=== PATIENT | female | born 1995 | race Caucasian/White ===

== ENCOUNTER 2017-05-05 21:56 | Emergency (ER) | payer OTHER ==
[~2017-05-05] VITALS: Ht 165.1 cm; Wt 64.0 kg
[~2017-05-05 21:56] MED LIST: ACET-704 PO; CIPR500T94 PO; CYCL-331 PO; HYDR-971 PO; LEVO500T59 PO; NAPR500T PO; SULF1TAB24 PO
--- NOTE | 2017-05-05 22:23 | ED.ADGEN ---
Past History Past Medical History: UTI, Other Past Surgical History: No Surgical History Smoking: Non-smoker Alcohol Use: Rarely Drug Use: None Adult General Chief Complaint Chief Complaint fall, back and rlq pain [facility] HPI Patient is a [22] year old [female] who presents with right CVA pain and paraspinous pain after fall on saturday. pain radiates around ribs to the right. she slipped down 1 step and fell to her back. pain with inspiration but not SOA. no fever, no n/v/d.today she started having RLQ pain. normal appetitie. she had leftover hydrocodone from a recent visit for UTI. she doesn't know her abx but states she took all of them. Review of Systems Review of Systems Constitutional: Denies fever or chills [] Eyes: Denies change in visual acuity, redness, or eye pain [] HENT: Denies nasal congestion or sore throat [] Respiratory: Denies cough or shortness of breath pain with inspiration Cardiovascular: No additional information not addressed in HPI [] GI: Denies abdominal pain, nausea, vomiting, bloody stools or diarrhea [] : Denies dysuria or hematuria [] Musculoskeletal:pain to right CVA and paraspinous muscle Skin: no rash Neurologic: Denies headache, focal weakness or sensory changes [] Endocrine: Denies polyuria or polydipsia [] Current Medications Current Medications Current Medications Medications (Trade) Dose Ordered Sig/Otf Start Time Stop Time Status Last Admin Dose Admin Info (Do NOT chart on this entry -- for MONITORING) 1 each PRN DAILY PRN 05/05/17 23:30 05/06/17 01:03 DC Iohexol (Omnipaque 300 Mg/ml) 75 ml 1X ONCE 05/05/17 23:30 05/05/17 23:31 DC 05/05/17 23:37 75 ML Allergies Allergies Allergies Coded Allergies Type Severity Reaction Last Updated Verified erythromycin base Adverse Reaction Severe Nausea and Vomiting 09/06/15 Yes Physical Exam Physical Exam Constitutional: Well developed, well nourished, no acute distress, non-toxic appearance. [] HENT: Normocephalic, atraumatic, bilateral external ears normal, oropharynx moist, no oral exudates, nose normal. [] Eyes: PERRLA, EOMI, conjunctiva normal, no discharge. [] Neck: Normal range of motion, no tenderness, supple, no stridor. [] Cardiovascular:Heart rate regular rhythm, no murmur [] Lungs & Thorax: Bilateral breath sounds clear to auscultation. tender to palpate right posterior, inferior ribs. Abdomen: Bowel sounds normal, soft, no tenderness, no masses, no pulsatile masses. RLQ pain, no RUQ pain Skin: Warm, dry, no erythema, no rash. [] Back: Tender right CVA and right paraspinous muscles at T10-T12. no external sign of trauma Extremities: No tenderness, no cyanosis, no clubbing, ROM intact, no edema. [] Neurologic: Alert and oriented X 3, normal motor function, normal sensory function, no focal deficits noted. [] Psychologic: Affect normal, judgement normal, mood normal. [] Current Patient Data Vital Signs Vital Signs Date Time Temp Pulse Resp B/P (MAP) Pulse Ox O2 Delivery O2 Flow Rate FiO2 05/06/17 00:55 71 16 101/57 (72) 98 Room Air Lab Results Laboratory Tests Test 05/05/17 22:00 05/05/17 22:29 05/05/17 23:32 Urine Collection Type Unknown Urine Color Yellow Urine Clarity Cloudy Urine pH 7.5 Urine Specific [place] 1.020 Urine Protein 100 mg/dl (NEG-TRACE) Urine Glucose (UA) Neg mg/dL (NEG) Urine Ketones (Stick) Neg mg/dL (NEG) Urine Blood Mod (NEG) Urine Nitrite Neg (NEG) Urine Bilirubin Neg (NEG) Urine Urobilinogen Dipstick 0.2 mg/dL (0.2 mg/dL) Urine Leukocyte Esterase Large (NEG) Urine RBC Occ /HPF (0-2) Urine WBC >40 /HPF (0-4) Urine Squamous Epithelial Cells Few /LPF Urine Bacteria Few /HPF (0-FEW) POC Urine HCG, Qualitative hcg negative (Negative) White Blood Count 8.7 x10^3/uL (4.0-11.0) Red Blood Count 4.13 x10^6/uL (3.50-5.40) Hemoglobin 13.2 g/dL (12.0-15.5) Hematocrit 38.7 % (36.0-47.0) Mean Corpuscular Volume 94 fL (79-100) Mean Corpuscular Hemoglobin 32 pg (25-35) Mean Corpuscular Hemoglobin Concent 34 g/dL (31-37) Red Cell Distribution Width 13.5 % (11.5-14.5) Platelet Count 195 x10^3/uL (140-400) Neutrophils (%) (Auto) 73 % (31-73) Lymphocytes (%) (Auto) 15 % (24-48) L Monocytes (%) (Auto) 9 % (0-9) Eosinophils (%) (Auto) 2 % (0-3) Basophils (%) (Auto) 1 % (0-3) Neutrophils # (Auto) 6.4 x10^3uL (1.8-7.7) Lymphocytes # (Auto) 1.3 x10^3/uL (1.0-4.8) Monocytes # (Auto) 0.8 x10^3/uL (0.0-1.1) Eosinophils # (Auto) 0.1 x10^3/uL (0.0-0.7) Basophils # (Auto) 0.1 x10^3/uL (0.0-0.2) Sodium Level 139 mmol/L (136-145) Potassium Level 3.2 mmol/L (3.5-5.1) L Chloride Level 102 mmol/L (98-107) Carbon Dioxide Level 29 mmol/L (21-32) Anion Gap 8 (6-14) Blood Urea Nitrogen 5 mg/dL (7-20) L Creatinine 0.6 mg/dL (0.6-1.0) Estimated GFR (Cockcroft-Gault) 122.8 Glucose Level 96 mg/dL (70-99) Calcium Level 8.5 mg/dL (8.5-10.1) EKG EKG [] Radiology/Procedures Radiology/Procedures CT with mild colonic thickening per radiology Course & Med Decision Making Course & Med Decision Making Pertinent Labs and Imaging studies reviewed. (See chart for details). pt was on cipro but her UA shows UTI still. will assume treatment failure and change to macrobid. no kidney injury seen from fall, no rib fractures on CT for lower ribs [] Final Impression Final Impression uti[] Problems: Dragon Disclaimer Dragon Disclaimer This electronic medical record was generated, in whole or in part, using a voice recognition dictation system. Departure Time of Disposition: 00:52 Disposition: 01 HOME, SELF-CARE Condition: STABLE Patient Instructions: Urinary Tract Infection, [id number] Additional Instructions: start macrobid today for infection. hydrocodone for pain for 2 days then tylenol and ibuprofen after. push fluids and reduce soda intake. return if symptoms worsen GIUSEPPE CORTEZ MD May 05, 2017 22:23
[2017-05-05] MEDS ORDERED: IOHEXOL 300 MG/ML 75 ML VIAL. IV ONE (23:30)
[2017-05-05] MEDS ORDERED: CONTRAST GIVEN MC PRN (23:30)
[2017-05-05 23:32] LABS: BACTERIA,URINE FEW /HPF (0-FEW); BILIRUBIN,URINE NEG (NEG); CLARITY,URINE CLOUDY; COLOR,URINE YELLOW; GLUCOSE,URINE NEG (NEG); NITRITE,URINE NEG (NEG); RBC,URINE OCC /HPF (0-2); SQUAMOUS EPITHELIAL CELL,UR FEW /LPF; UROBILINOGEN,URINE 0.2 mg/dL (0.2 mg/dL); WBC,URINE >40 /HPF (0-4)
[2017-05-05 23:46] LABS: BASO # 0.1 x10^3/uL (0.0-0.2); BASO % 1 % (0-3); EOS # 0.1 x10^3/uL (0.0-0.7); EOS % 2 % (0-3); HEMATOCRIT 38.7 % (36.0-47.0); HEMOGLOBIN 13.2 g/dL (12.0-15.5); LYMPH # 1.3 x10^3/uL (1.0-4.8); LYMPH % 15 % (24-48); MEAN CORPUSCULAR HEMOGLOBIN 32 pg (25-35); MEAN CORPUSCULAR HGB CONC 34 g/dL (31-37); MEAN CORPUSCULAR VOLUME 94 fL (79-100); MONO # 0.8 x10^3/uL (0.0-1.1); MONO % 9 % (0-9); NEUT # 6.4 x10^3uL (1.8-7.7); NEUT % 73 % (31-73); PLATELET COUNT 195 x10^3/uL (140-400); RED BLOOD COUNT 4.13 x10^6/uL (3.50-5.40); RED CELL DISTRIBUTION WIDTH 13.5 % (11.5-14.5); WHITE BLOOD COUNT 8.7 x10^3/uL (4.0-11.0)
[2017-05-05 23:52] LABS: CALCIUM 8.5 mg/dL (8.5-10.1); CREATININE 0.6 mg/dL (0.6-1.0); GFR 122.8; POTASSIUM 3.2 mmol/L (3.5-5.1)
--- NOTE | 2017-05-06 00:41 | RAD ---
Examination: CT of the abdomen and pelvis with IV contrast HISTORY: History of recent fall, pain right lower quadrant, hematuria COMPARISON: 11/13/2014 TECHNIQUE: CT of the abdomen and pelvis with IV contrast. Coronal and sagittal reformats were performed. Exposure: One or more of the following individualized dose reduction techniques were utilized for this examination: 1. Automated exposure control 2. Adjustment of the mA and/or kV according to patient size 3. Use of iterative reconstruction technique FINDINGS: The visualized bibasilar lungs grossly appears unremarkable. No evidence of free air identified in the abdomen. The visualized liver, spleen, adrenals prostate is unremarkable but the gallbladder is mildly distended. The stomach is mildly distended. The visualized pancreas grossly appears unremarkable The small bowel is nondilated. The appendix is normal. Feces and gas noted in the colon. There is mild thickened appearance of the wall of the sigmoid colon with surrounding inflammatory fat stranding. Small amount of free fluid identified in the pelvis. Urinary bladder is mildly distended. The uterus is mildly prominent. Small amount of fluid identified in the endometrium. The caliber of the aorta grossly appears unremarkable. The bilateral kidneys enhance symmetrically. No evidence of lytic bony destructive lesion. Bilateral L5 spondylolysis. IMPRESSION: 1. Mild inflammatory fat stranding identified in sigmoid colon region with mild thickened appearance of the sigmoid colon likely secondary to colitis. Electronically signed by: Roberto Goldberg MD (05/06/2017 12:37 AM)
[2017-05-06 00:55] VITALS: BP 101/57
== END 2017-05-06 00:59 | disposition home or self-care (01) ==
LOC: ER 21:56
DX: N39.0 Urinary tract infection, site not specified (principal); Z88.1 Allergy status to other antibiotic agents
CPT/HCPCS: 36415; 74177; 80048; 81001; 81025; 85027; 99285; Q9967

== ENCOUNTER 2017-06-09 19:01 | Emergency (ER) | payer OTHER ==
[~2017-06-09] VITALS: Ht 165.1 cm; Wt 64.0 kg
[2017-06-09 19:01] VITALS: BP 127/80
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
--- NOTE | 2017-06-10 07:56 | RAD ---
EXAM: Right wrist 3 views. HISTORY: Right wrist pain after injury. COMPARISON: None. FINDINGS: No fractures are identified. Joint spaces and alignment are maintained. IMPRESSION: 1. No fracture.
== END 2017-06-09 20:40 | disposition home or self-care (01) ==
LOC: ER 19:01
DX: S60.211A Contusion of right wrist, initial encounter (principal); Z88.1 Allergy status to other antibiotic agents; W22.01XA Walked into wall, initial encounter; Y93.89 Activity, other specified; Y99.8 Other external cause status; Y92.89 Other specified places as the place of occurrence of the external cause
CPT/HCPCS: 29125; 73110; 81025; 99284-25

== ENCOUNTER → 2017-08-10 | Outpatient (CLI) | payer OTHER ==
--- NOTE | 2017-08-10 13:47 | RAD ---
Obstetrical pelvic ultrasound 08/10/2017 at 1309 hours Indication: Pelvic cramping, LMP reported 05/19/2017 Comparison: Ultrasound pelvis 06/13/2012 Technique: Sonographic imaging of the abdomen is performed utilizing transabdominal imaging with color Doppler and spectral waveform analysis. Findings: The uterus measures 9.3 x 7.8 x 7.1 cm. Cervical length measures 3.0 cm. An intrauterine gestational sac is identified with a yolk sac. No pole is identified. Gestational sac measures 0.91 cm compatible with a gestational age of 5 weeks and 5 days. No significant uterine masses are identified. Is no free fluid within the pelvis. Right ovary measures 2.6 x 2.3 x 1.4 cm and is within normal limits. Left ovary measures 4.0 x 2.7 x 1.3 cm and is within normal limits. Arterial and venous waveform are identified within the ovaries bilaterally at the time of imaging. Impression: 1. An intrauterine gestational sac is identified with a yolk sac. No pole is yet identified. Findings are compatible with a gestational age of 5 weeks and 5 days with a sonogram EDC of 04/07/2018. Given discrepancy of LMP and sonographic imaging, follow-up serial beta hCG and pelvic ultrasound is recommended as findings could relate to early versus threatened failure.
== END | disposition home or self-care (01) ==
LOC: RAD 12:40
PROVIDERS: ATTEND Family Medicine
DX: O26.891 Other specified pregnancy related conditions, first trimester (principal); R10.2 Pelvic and perineal pain; Z3A.01 Less than 8 weeks gestation of pregnancy
CPT/HCPCS: 76801

== ENCOUNTER 2018-05-03 10:52 | Emergency (ER) | payer OTHER ==
[~2018-05-03] VITALS: Ht 165.1 cm; Wt 68.5 kg
[~2018-05-03 10:52] MED LIST changes: +NAPR-683 PO; -NAPR500T PO
[2018-05-03 11:01] VITALS: BP 124/79
[2018-05-03] MEDS ORDERED: ONDANSETRON ODT 4 MG TAB.RAPDIS PO ONE (11:15)
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
[2018-05-03 12:49] LABS: BILIRUBIN,URINE NEG (NEG); CLARITY,URINE TURBID; COLOR,URINE YELLOW; GLUCOSE,URINE NEG (NEG); NITRITE,URINE NEG (NEG); UROBILINOGEN,URINE 0.2 mg/dL (0.2 mg/dL)
[2018-05-03 12:50] LABS: BACTERIA,URINE MANY /HPF (0-FEW); WBC,URINE >40 /HPF (0-4)
[2018-05-03 12:51] LABS: SQUAMOUS EPITHELIAL CELL,UR MANY /LPF
[2018-05-03 13:33] LABS: BASO % 1 % (0-3); EOS % 0 % (0-3); HEMATOCRIT 40.3 % (36.0-47.0); HEMOGLOBIN 13.1 g/dL (12.0-15.5); LYMPH # 0.8 x10^3/uL (1.0-4.8); LYMPH % 15 % (24-48); MEAN CORPUSCULAR HEMOGLOBIN 27 pg (25-35); MEAN CORPUSCULAR HGB CONC 32 g/dL (31-37); MEAN CORPUSCULAR VOLUME 84 fL (79-100); MONO # 0.3 x10^3/uL (0.0-1.1); MONO % 5 % (0-9); NEUT # 4.5 x10^3uL (1.8-7.7); NEUT % 80 % (31-73); PLATELET COUNT 231 x10^3/uL (140-400); RED BLOOD COUNT 4.77 x10^6/uL (3.50-5.40); RED CELL DISTRIBUTION WIDTH 24.5 % (11.5-14.5); WHITE BLOOD COUNT 5.7 x10^3/uL (4.0-11.0)
[2018-05-03 13:40] LABS: ALBUMIN 4.6 g/dL (3.4-5.0); CALCIUM 8.9 mg/dL (8.5-10.1); CREATININE 0.7 mg/dL (0.6-1.0); POTASSIUM 3.6 mmol/L (3.5-5.1); TOTAL BILIRUBIN 0.9 mg/dL (0.2-1.0)
[2018-05-03] MEDS ORDERED: CEPH500T PO (13:50)
[2018-05-03 14:14] LABS: ANISOCYTOSIS SLIGHT; MICROCYTOSIS SLIGHT; PLT ESTIMATE ADEQUATE (ADEQUATE); POLYCHROMASIA SLIGHT
[2018-05-03 14:17] LABS: OVALOCYTES OCC
== END 2018-05-03 13:17 | disposition home or self-care (01) ==
LOC: ER 10:52
DX: N39.0 Urinary tract infection, site not specified (principal); R20.2 Paresthesia of skin; Z88.1 Allergy status to other antibiotic agents
CPT/HCPCS: 36415; 80053; 81001; 81025; 85025; 87086; 99284; Q0162

== ENCOUNTER 2018-08-03 10:37 | Emergency (ER) | payer OTHER ==
[~2018-08-03] VITALS: Ht 165.1 cm; Wt 65.0 kg
[~2018-08-03 10:37] MED LIST changes: +CEPH500T PO
[2018-08-03 11:25] LABS: BACTERIA,URINE MOD /HPF (0-FEW); BILIRUBIN,URINE NEG (NEG); CLARITY,URINE HAZY; COLOR,URINE YELLOW; GLUCOSE,URINE NEG (NEG); NITRITE,URINE NEG (NEG); RBC,URINE RARE /HPF (0-2); SQUAMOUS EPITHELIAL CELL,UR MANY /LPF; U PREG PATIENT NEGATIVE (NEG); UROBILINOGEN,URINE 0.2 mg/dL (0.2 mg/dL); WBC,URINE 20-40 /HPF (0-4)
[2018-08-03] MEDS ORDERED: IBUP800T19 PO (11:48)
[2018-08-03] MEDS ORDERED: CYCL-331 PO (11:48)
[2018-08-03] MEDS ORDERED: CIPR250T30 PO (11:48)
--- NOTE | 2018-08-03 11:49 | PHYS DOC ---
Past History Past Medical History: No Pertinent History Past Surgical History: No Surgical History Smoking: Non-smoker Alcohol Use: None Drug Use: None Adult General Chief Complaint Chief Complaint: BACK PAIN - NO INJURY HPI HPI Patient is a 23 year old female who presents with complaining of low back pain since this morning that woke up at 7 AM as a constant pain without radiation. Patient said the pain is a sharp pain and she has intermittent episodes of bilateral lower extremity numbness that resolves after a few seconds patient denies injury and history of same pain. Patient rated her pain 8/10 and states she applied heat without improvement of her pain. She denies focal weakness, fever and chills, nausea and vomiting, abdominal pain, urinary symptoms, diarrhea and constipation. Patient states she is on control and had irregular menstruation earlier this month. Review of Systems Review of Systems Constitutional: Denies fever or chills [] Eyes: Denies change in visual acuity, redness, or eye pain [] HENT: Denies nasal congestion or sore throat [] Respiratory: Denies cough or shortness of breath [] Cardiovascular: No additional information not addressed in HPI [] GI: Denies abdominal pain, nausea, vomiting, bloody stools or diarrhea [] : Denies dysuria or hematuria [] Musculoskeletal: Reports back pain o, denies joint pain [] Integument: Denies rash or skin lesions [] Neurologic: Denies headache, focal weakness or sensory changes [] Endocrine: Denies polyuria or polydipsia [] All other systems were reviewed and found to be within normal limits, except as documented in this note. Current Medications Current Medications Current Medications Medications (Trade) Dose Ordered Sig/[facility] Start Time Stop Time Status Last Admin Dose Admin Cyclobenzaprine HCl (Flexeril) 10 mg 1X ONCE 08/03/18 12:00 08/03/18 12:01 08/03/18 11:34 10 MG Allergies Allergies Allergies Coded Allergies Type Severity Reaction Last Updated Verified erythromycin base Adverse Reaction Severe Nausea and Vomiting 05/03/18 Yes Physical Exam Physical Exam Constitutional: Well developed, well nourished, mild distress, non-toxic appearance. [] HENT: Normocephalic, atraumatic Eyes: PERRLA, EOMI, conjunctiva normal, no discharge. [] Neck: Normal range of motion, no tenderness, supple, no stridor. [] Cardiovascular:Heart rate regular rhythm, no murmur [] Lungs & Thorax: Bilateral breath sounds clear to auscultation [] Abdomen: Bowel sounds normal, soft, no tenderness, no masses, no pulsatile masses. [] Skin: Warm, dry, no erythema, no rash. [] Back: No midline tenderness, bilateral paraspinal muscle spasm, decrease of range of motion secondary to pain, no CVA tenderness. [] Extremities: No tenderness, no cyanosis, no clubbing, ROM intact, no edema. [] Neurologic: Alert and oriented X 3, normal motor function, normal sensory function, no focal deficits noted. [] Psychologic: Affect normal, judgement normal, mood normal. [] Current Patient Data Vital Signs Vital Signs Date Time Temp Pulse Resp B/P (MAP) Pulse Ox O2 Delivery O2 Flow Rate FiO2 08/03/18 10:43 Room Air 08/03/18 10:43 98.3 65 18 99 Lab Results Laboratory Tests Test 08/03/18 10:43 Urine Collection Type Unknown Urine Color Yellow Urine Clarity Hazy Urine pH 6.5 Urine Specific [place] 1.015 Urine Protein Neg (NEG-TRACE) Urine Glucose (UA) Neg mg/dL (NEG) Urine Ketones (Stick) Neg mg/dL (NEG) Urine Blood Trace (NEG) Urine Nitrite Neg (NEG) Urine Bilirubin Neg (NEG) Urine Urobilinogen Dipstick 0.2 mg/dL (0.2 mg/dL) Urine Leukocyte Esterase Mod (NEG) Urine RBC Rare /HPF (0-2) Urine WBC 20-40 /HPF (0-4) Urine Squamous Epithelial Cells Many /LPF Urine Bacteria Mod /HPF (0-FEW) Urine Mucus Mod /LPF Urine Test Negative (NEG) EKG EKG [] Radiology/Procedures Radiology/Procedures [] Course & Med Decision Making Course & Med Decision Making Pertinent Labs reviewed. (See chart for details) Evaluation of patient in ER showed 23-year-old female patient with complaining of back pain since this morning. Patient had pulses present bilaterally and didn 't want to have pain medication in ER. Patient treated with Flexeril. UA showed UTI. Plan discharge patient home with diagnosis of UTI and lumbosacral strain. Dragon Disclaimer Dragon Disclaimer This electronic medical record was generated, in whole or in part, using a voice recognition dictation system. Departure Departure: Impression: Primary Impression: Lumbosacral strain Additional Impression: Urinary tract infection Disposition: HOME, SELF-CARE (at 1145) Condition: STABLE Referrals: ROLO FARRELL MD (PCP) Patient Instructions: Lumbosacral Strain, Urinary Tract Infection Additional Instructions: Drink plenty of liquids Follow-up with your primary care physician in 3-5 days Return to ER if not getting better Apply ice on the affected area Scripts Ciprofloxacin Hcl (CIPRO) 250 Mg Tablet 1 TAB PO BID, #14 TAB Prov: MEÑO SMART MD 08/03/18 Cyclobenzaprine Hcl (CYCLOBENZAPRINE HCL) 10 Mg Tablet 1 TAB PO TID, #30 TAB Prov: MEÑO SMART MD 08/03/18 Ibuprofen (IBUPROFEN) 800 Mg Tablet 1 TAB PO TID, #30 TAB Prov: MEÑO SMART MD 08/03/18 Problem Qualifiers MEÑO SMART MD Aug 03, 2018 11:49
[2018-08-03 12:00] VITALS: BP 104/62
[2018-08-03] MEDS ORDERED: CYCLOBENZAPRINE 10 MG TABLET. PO ONE (12:00)
== END 2018-08-03 12:00 | disposition home or self-care (01) ==
LOC: ER 10:37
DX: S39.012A Strain of muscle, fascia and tendon of lower back, initial encounter (principal); N39.0 Urinary tract infection, site not specified; Z88.1 Allergy status to other antibiotic agents; X58.XXXA Exposure to other specified factors, initial encounter; Y93.89 Activity, other specified; Y92.89 Other specified places as the place of occurrence of the external cause; Y99.8 Other external cause status
CPT/HCPCS: 81001; 81025; 99283

== ENCOUNTER 2018-10-02 08:40 | Emergency (ER) | payer OTHER ==
[~2018-10-02] VITALS: Ht 165.1 cm; Wt 68.0 kg
[~2018-10-02 08:40] MED LIST changes: +CIPR250T30 PO; +IBUP800T19 PO
[2018-10-02 08:53] VITALS: BP 142/92
[2018-10-02] MEDS ORDERED: IV NORMAL SALINE 1,000ML 1,000 ML IV ONE (09:00)
[2018-10-02] MEDS ORDERED: diphenhydrAMINE HCL 25 MG CAPSULE PO ONE (09:00)
[2018-10-02] MEDS ORDERED: METOCLOPRAMIDE HCL 10 MG/2 ML VIAL. IV ONE (09:00)
[2018-10-02] MEDS ORDERED: KETOROLAC 30 MG/ML VIAL. IV ONE (09:00)
--- NOTE | 2018-10-02 09:03 | PHYS DOC ---
Past History Past Medical History: No Pertinent History Past Surgical History: No Surgical History Smoking: Non-smoker Alcohol Use: None Drug Use: None Adult General Chief Complaint Chief Complaint: HEADACHE HPI HPI 23-year-old female presents with left-sided headache. She states that the headache started yesterday but improved with Tylenol. Today, the headache has returned and she took 2 ibuprofen without any relief. The patient also has pain in her left ear. She denies any change in hearing. She had been feeling well prior to this. She denies any trauma or falls. Her vision is normal. She denies fever or chills. No history of migraine headaches. Review of Systems Review of Systems Constitutional: Denies fever or chills [] Eyes: Denies change in visual acuity, redness, or eye pain [] HENT: Denies nasal congestion or sore throat [] Respiratory: Denies cough or shortness of breath [] Cardiovascular: No additional information not addressed in HPI [] GI: Denies abdominal pain, nausea, vomiting, bloody stools or diarrhea [] : Denies dysuria or hematuria [] Musculoskeletal: Denies back pain or joint pain [] Integument: Denies rash or skin lesions [] Neurologic: Headache. No focal weakness or sensory changes [] Endocrine: Denies polyuria or polydipsia [] All other systems were reviewed and found to be within normal limits, except as documented in this note. Allergies Allergies Allergies Coded Allergies Type Severity Reaction Last Updated Verified erythromycin base Adverse Reaction Severe Nausea and Vomiting 05/03/18 Yes Physical Exam Physical Exam Constitutional: Well developed, well nourished, no acute distress, non-toxic appearance. Appears to be in pain.[] HENT: Normocephalic, atraumatic, bilateral external ears normal, oropharynx moist, no oral exudates, nose normal. Fractured tooth in the left lower quadrant no signs of infection[] Eyes: PERRLA, EOMI, conjunctiva normal, no discharge. [] Neck: Normal range of motion, no tenderness, supple, no stridor. [] Cardiovascular:Heart rate regular rhythm, no murmur [] Lungs & Thorax: Bilateral breath sounds clear to auscultation [] Abdomen: Bowel sounds normal, soft, no tenderness, no masses, no pulsatile masses. [] Skin: Warm, dry, no erythema, no rash. [] Back: No tenderness, no CVA tenderness. [] Extremities: No tenderness, no cyanosis, no clubbing, ROM intact, no edema. [] Neurologic: Alert and oriented X 3, normal motor function, normal sensory function, no focal deficits noted. [] Psychologic: Affect tearful, judgement normal, mood normal. [] Current Patient Data Vital Signs Vital Signs Date Time Temp Pulse Resp B/P (MAP) Pulse Ox O2 Delivery O2 Flow Rate FiO2 10/02/18 08:53 98.1 60 22 98 Room Air EKG EKG [] Radiology/Procedures Radiology/Procedures [] Course & Med Decision Making Course & Med Decision Making Pertinent Labs and Imaging studies reviewed. (See chart for details) The patient was given 1 L normal saline, 30 mg Toradol IV, 25 mg of Benadryl by mouth and 10mg Reglan IV for her headache. The patient is feeling much better at this time. She is stable for discharge. [] Dragon Disclaimer Dragon Disclaimer This electronic medical record was generated, in whole or in part, using a voice recognition dictation system. Departure Departure: Referrals: ROLO FARRELL MD (PCP) AYAZ MURDOCK DO Oct 02, 2018 09:03
[2018-10-02 09:25] LABS: BASO % 1 % (0-3); EOS % 1 % (0-3); HEMATOCRIT 38.3 % (36.0-47.0); HEMOGLOBIN 12.9 g/dL (12.0-15.5); LYMPH # 1.3 x10^3/uL (1.0-4.8); LYMPH % 43 % (24-48); MEAN CORPUSCULAR HEMOGLOBIN 31 pg (25-35); MEAN CORPUSCULAR HGB CONC 34 g/dL (31-37); MEAN CORPUSCULAR VOLUME 93 fL (79-100); MONO # 0.2 x10^3/uL (0.0-1.1); MONO % 8 % (0-9); NEUT # 1.5 x10^3uL (1.8-7.7); NEUT % 48 % (31-73); PLATELET COUNT 197 x10^3/uL (140-400); RED BLOOD COUNT 4.11 x10^6/uL (3.50-5.40); RED CELL DISTRIBUTION WIDTH 14.7 % (11.5-14.5); WHITE BLOOD COUNT 3.1 x10^3/uL (4.0-11.0)
[2018-10-02 09:36] LABS: CALCIUM 8.3 mg/dL (8.5-10.1); CREATININE 0.6 mg/dL (0.6-1.0); GFR 121.8; POTASSIUM 3.9 mmol/L (3.5-5.1)
== END 2018-10-02 10:00 | disposition home or self-care (01) ==
LOC: ER 08:40
DX: R51 Headache (principal); H92.02 Otalgia, left ear; Z88.1 Allergy status to other antibiotic agents
CPT/HCPCS: 36415; 80048; 85025; 96374; 96375; 99284; J1885; J2765; Q0163; J7030

== ENCOUNTER → 2018-10-03 | Outpatient (CLI) | payer OTHER ==
[2018-10-02 08:53] VITALS: BP 142/92
--- NOTE | 2018-10-03 18:05 | RAD ---
EXAM: Head CT without contrast. HISTORY: Headache. Nausea. TECHNIQUE: Computed tomographic images of the head were obtained without contrast. *One or more of the following individualized dose reduction techniques were utilized for this examination: 1. Automated exposure control. 2. Adjustment of the mA and/or kV according to patient size. 3. Use of iterative reconstruction technique. COMPARISON: None. FINDINGS: There is no acute or subacute extra-axial or intraparenchymal hemorrhage. There is no mass effect or midline shift. There is no hydrocephalus. The torre-white matter differentiation pattern is intact. The visualized portions of the orbits, paranasal sinuses and mastoid air cells are unremarkable. No suspicious calvarial lesion is seen. IMPRESSION: No acute intracranial findings. Electronically signed by: Elisabeth Leigh MD (10/03/2018 6:02 PM) [facility]
== END | disposition home or self-care (01) ==
LOC: CT 17:32
PROVIDERS: ATTEND Family Medicine
DX: R51 Headache (principal); R11.0 Nausea; H92.02 Otalgia, left ear
CPT/HCPCS: 70450

== ENCOUNTER 2018-12-06 18:44 | Emergency (ER) | payer OTHER ==
[~2018-12-06] VITALS: Ht 165.1 cm; Wt 65.0 kg
[~2018-12-06 18:44] MED LIST changes: +HYDR-3165 PO; -HYDR-971 PO
--- NOTE | 2018-12-06 18:48 | ED.ADGEN ---
Past History Past Medical History: No Pertinent History Past Surgical History: No Surgical History Smoking: Non-smoker Alcohol Use: None Drug Use: None Adult General Chief Complaint Chief Complaint ".. I getting a infection on my Rt., lower lip... it been there two days... and it getting sore..." HPI HPI Patient is a 23 year old female who presents with above hx and complaints right lower lid stye. There is no pointing abscess. Very mild erythema and very limited area nasal side of lower lid. There is no adenopathy. There is no conjunctiva injection. Patient has no history immunosuppression. No history of travel. History of specific ill contacts. Patient normally follows Dr. Alcazar. Review of Systems Review of Systems Constitutional: Denies fever or chills [] Eyes: Denies change in visual acuity, redness, or eye pain-complaints right lower lid stye HENT: Denies nasal congestion or sore throat [] Respiratory: Denies cough or shortness of breath [] Cardiovascular: No additional information not addressed in HPI [] GI: Denies abdominal pain, nausea, vomiting, bloody stools or diarrhea [] : Denies dysuria or hematuria [] Musculoskeletal: Denies back pain or joint pain [] Integument: Denies rash or skin lesions [] Neurologic: Denies headache, focal weakness or sensory changes [] Endocrine: Denies polyuria or polydipsia [] All other systems were reviewed and found to be within normal limits, except as documented in this note. Family History Family History Noncontributory Current Medications Current Medications Current Medications Medications (Trade) Dose Ordered Sig/Otf Start Time Stop Time Status Last Admin Dose Admin Erythromycin (Romycin) 0.25 inch 1X ONCE 12/06/18 19:45 12/06/18 19:46 DC 12/06/18 19:32 0.25 INCH Hydrocodone Bitartrate/ Ibuprofen (Vicoprofen 7.5-200) 1 tab 1X ONCE 12/06/18 19:45 12/06/18 19:46 DC 12/06/18 19:32 1 TAB See nursing for home meds Allergies Allergies Allergies Coded Allergies Type Severity Reaction Last Updated Verified erythromycin base Adverse Reaction Severe Nausea and Vomiting 12/06/18 Yes Physical Exam Physical Exam Constitutional: Well developed, well nourished, no acute distress, non-toxic appearance. [] HENT: Normocephalic, atraumatic, bilateral external ears normal, oropharynx moist, no oral exudates, nose normal. [] Eyes: PERRLA, EOMI, conjunctiva normal, no discharge. [] Right lower lid stye Neck: Normal range of motion, no tenderness, supple, no stridor. [] Cardiovascular:Heart rate regular rhythm, no murmur [] Lungs & Thorax: Bilateral breath sounds clear to auscultation [] Abdomen: Bowel sounds normal, soft, no tenderness, no masses, no pulsatile masses. [] Skin: Warm, dry, no erythema, no rash. [] Back: No tenderness, no CVA tenderness. [] Extremities: No tenderness, no cyanosis, no clubbing, ROM intact, no edema. [] Neurologic: Alert and oriented X 3, normal motor function, normal sensory function, no focal deficits noted. [] Psychologic: Affect anxious, judgement normal, mood normal. [] Current Patient Data Vital Signs Vital Signs Date Time Temp Pulse Resp B/P (MAP) Pulse Ox O2 Delivery O2 Flow Rate FiO2 12/06/18 18:50 98.3 65 16 98 Room Air EKG EKG [] Radiology/Procedures Radiology/Procedures [] Course & Med Decision Making Course & Med Decision Making Pertinent Labs and Imaging studies reviewed. (See chart for details). Patient did have application of a small amount of erythromycin which was removed because she felt she was allergic to it. We'll place patient on Polytrim use 4 times a day. Follow-up primary care. Follow-up with ophthalmology. Return if any concerns. [] Final Impression Final Impression 1. Right lower lid stye Dragon Disclaimer Dragon Disclaimer This electronic medical record was generated, in whole or in part, using a voice recognition dictation system. Dragon Disclaimer This chart was dictated in whole or in part using Voice Recognition software in a busy, high-work load, and often noisy Emergency Department environment. It may contain unintended and wholly unrecognized errors or omissions. Discharge Summary Visit Information Final Diagnosis Problems Medical Problems: (1) Sty Status: Acute Brief Hospital Course Allergies Allergies Coded Allergies Type Severity Reaction Last Updated Verified erythromycin base Adverse Reaction Severe Nausea and Vomiting 12/06/18 Yes Vital Signs Vital Signs Date Time Temp Pulse Resp B/P (MAP) Pulse Ox O2 Delivery O2 Flow Rate FiO2 12/06/18 18:50 98.3 65 16 98 Room Air Brief Hospital Course Ms. Jacobo is a 23 old female who presented with Rt. lower lid stye. Patient use Polytrim 4 times a day. Follow-up primary care. Patient to use moist heat packs. Patient also consider follow-up with ophthalmology. Patient return if any concerns. Discharge Information Condition at Discharge: Stable Disposition/Orders: D/C to Home Dischare Medications Current Medications Erythromycin (Romycin) 0.25 inch 1X ONCE OD Last administered on 12/06/18at 19: 32; Admin Dose 0.25 INCH; Start 12/06/18 at 19:45; Stop 12/06/18 at 19:46; Status DC Hydrocodone Bitartrate/ Ibuprofen (Vicoprofen 7.5-200) 1 tab 1X ONCE PO Last administered on 12/06/18at 19:32; Admin Dose 1 TAB; Start 12/06/18 at 19:45; Stop 12/06/18 at 19:46; Status DC Active Scripts Active Polytrim Eye Drops (Polymyxin B Sulf/Trimethoprim) 10 Ml Drops 1 Drop EACHEYE Q6HRS PRN Hydrocodone-Ibuprofen 7.5-200 (Hydrocodone/Ibuprofen) 1 Each Tablet 1 Tab PO PRN Q6HRS PRN Ibuprofen 800 Mg Tablet 1 Tab PO TID Naprosyn (Naproxen) 500 Mg Tablet 1 Tab PO BID YOHANA AGUAYO MD Dec 06, 2018 18:48
[2018-12-06 18:50] VITALS: BP 103/56
[2018-12-06] MEDS ORDERED: HYDR-1179 PO (19:18)
[2018-12-06] MEDS ORDERED: POLY10DR EACHEYE (19:21)
[2018-12-06] MEDS: ERYTHROMYCIN 0.5% OPHTH OINTMENT 1GM TUBE. OD ONE (19:32)
[2018-12-06] MEDS: HYDROcodon/IBUPROFEN 7.5/200MG 1 TAB TABLET PO ONE (19:32)
== END 2018-12-06 19:43 | disposition home or self-care (01) ==
LOC: ER 18:44
DX: H00.012 Hordeolum externum right lower eyelid (principal); Z88.1 Allergy status to other antibiotic agents
CPT/HCPCS: 99283

== ENCOUNTER 2019-01-10 18:47 | Emergency (ER) | payer OTHER ==
[~2019-01-10] VITALS: Ht 165.1 cm; Wt 67.1 kg
[~2019-01-10 18:47] MED LIST changes: +HYDR-1179 PO; +POLY10DR EACHEYE
[2019-01-10 18:57] VITALS: BP 118/59
--- NOTE | 2019-01-10 19:40 | ED.ADGEN ---
Past History Past Medical History: No Pertinent History Past Surgical History: No Surgical History Smoking: Non-smoker Alcohol Use: None Drug Use: None Adult General Chief Complaint Chief Complaint leg pain HPI HPI 23 years old presented emergency department with left leg pain swelling and bruising she is worried she is having blood come because she is taking control no numbness no weakness she does not recall any trauma Review of Systems Review of Systems Constitutional: Denies fever or chills [] Eyes: Denies change in visual acuity, redness, or eye pain [] HENT: Denies nasal congestion or sore throat [] Respiratory: Denies cough or shortness of breath [] Cardiovascular: No additional information not addressed in HPI [] GI: Denies abdominal pain, nausea, vomiting, bloody stools or diarrhea [] : Denies dysuria or hematuria [] Musculoskeletal: Denies back pain or joint pain [] Integument: Denies rash or skin lesions [] Neurologic: Denies headache, focal weakness or sensory changes [] Endocrine: Denies polyuria or polydipsia [] All other systems were reviewed and found to be within normal limits, except as documented in this note. Allergies Allergies Allergies Coded Allergies Type Severity Reaction Last Updated Verified erythromycin base Adverse Reaction Severe Nausea and Vomiting 12/06/18 Yes Physical Exam Physical Exam Constitutional: Well developed, well nourished, no acute distress, non-toxic appearance. [] HENT: Normocephalic, atraumatic, bilateral external ears normal, oropharynx moist, no oral exudates, nose normal. [] Eyes: PERRLA, EOMI, conjunctiva normal, no discharge. [] Neck: Normal range of motion, no tenderness, supple, no stridor. [] Cardiovascular:Heart rate regular rhythm, no murmur [] Lungs & Thorax: Bilateral breath sounds clear to auscultation [] Abdomen: Bowel sounds normal, soft, no tenderness, no masses, no pulsatile masses. [] Skin: Warm, dry, no erythema, no rash. [] Back: No tenderness, no CVA tenderness. [] Extremities: left leg swelling , ecchymosis tenderness Neurologic: Alert and oriented X 3, normal motor function, normal sensory function, no focal deficits noted. [] Psychologic: Affect normal, judgement normal, mood normal. [] Current Patient Data Vital Signs Vital Signs Date Time Temp Pulse Resp B/P (MAP) Pulse Ox O2 Delivery O2 Flow Rate FiO2 01/10/19 18:57 97.6 67 18 99 Room Air EKG EKG [] Radiology/Procedures Radiology/Procedures [] Course & Med Decision Making Course & Med Decision Making Pertinent Labs and Imaging studies reviewed. (See chart for details) [] Final Impression Final Impression [] Problems: (1) Contusion of left leg Qualifiers: Qualified Codes: S80.12XA - Contusion of left lower leg, initial encounter Dragon Disclaimer Dragon Disclaimer This electronic medical record was generated, in whole or in part, using a voice recognition dictation system. SUSAN RIVERS MD Jan 10, 2019 19:40
--- NOTE | 2019-01-10 21:12 | RAD ---
Examination: 2 views of the left tibia and fibula HISTORY: History of trauma, bruising below the kneecap medially COMPARISON: None available FINDINGS: The alignment of the tibia and fibula grossly appears unremarkable. There is no acute fracture or dislocation identified. Impression : No acute osseous findings. Electronically signed by: Roberto Goldberg MD (01/10/2019 9:09 PM) [facility]
--- NOTE | 2019-01-10 21:51 | RAD ---
Examination: Lower Extremity Venous Doppler Ultrasound History: Left leg pain Comparison: None Procedure: Ray scale, color flow 2D and spectal waveform analysis images are obtained with and without compression in the area of the common femoral vein, superficial femoral vein - femoral vein junction, main femoral vein (superficial femoral vein) and popliteal vein. Veins of the proximal calf are also imaged. Findings: There is normal duplex flow, color flow and compressibility of all visualized vein segments. No evidence of deep venous thrombus is present. Impression: No evidence of DVT in the left lower extremity venous system. Electronically signed by: Roberto Goldberg MD (01/10/2019 9:48 PM) [facility]
== END 2019-01-10 21:50 | disposition home or self-care (01) ==
LOC: ER 18:47
DX: S80.12XA Contusion of left lower leg, initial encounter (principal); Z88.1 Allergy status to other antibiotic agents; X58.XXXA Exposure to other specified factors, initial encounter; Y93.89 Activity, other specified; Y92.89 Other specified places as the place of occurrence of the external cause; Y99.8 Other external cause status
CPT/HCPCS: 73590; 93971; 99284-25

== ENCOUNTER 2019-04-22 17:57 | Emergency (ER) | payer OTHER ==
[~2019-04-22] VITALS: Ht 165.1 cm; Wt 68.4 kg
[2019-04-22] MEDS ORDERED: IV RINGERS SOLUTION,LACTATED 1,000 ML IV SCH (18:06)
[2019-04-22] MEDS ORDERED: FAMOTIDINE 20 MG/2 ML VIAL IVP ONE (18:15)
[2019-04-22] MEDS ORDERED: ONDANSETRON PF 4 MG/2 ML VIAL. IV ONE (18:15)
[2019-04-22] MEDS ORDERED: MAGNESIUM HYDROXIDE 2,400 MG/30 ML ORAL.SUSP. PO ONE (18:15)
--- NOTE | 2019-04-22 18:29 | ED.ADGEN ---
Past History Past Medical History: No Pertinent History, UTI Past Surgical History: No Surgical History Smoking: Non-smoker Alcohol Use: None Drug Use: None Adult General Chief Complaint Chief Complaint ".. I ve been having abdomen pain.. here... mid and upper right side.. it been off and on x 2- 3 days. .. much worse tonight.. I did eat chicken nuggets about two hours ago....".." I am on control..." [facility] HPI Patient is a 24 year old female who presents with above hx and complaints Rt.upper and mid abdomen pain x 2-3 days. Pain epigastric area is now rated as 7/10. Nothing she does seems to help relieve the pain. Pain has been intermittent until this afternoon and has been constant. Patient does have nausea but no active vomiting. Patient denies any dark or tarry stools. Patient denies any intake bad food. Patient last ate chicken nuggets approximately 2 hours ago. Patient has had previous urinary tract infections. Has had 4 previous pregnancies and deliveries. Patient denies any history with her or family members for colitis, irritable bowel, or gallstones, GERD or ulcers. Patient denies any travel. Patient denies any specific ill contacts. Patient denies any trauma. Patient states she's currently on control. Patient follows with Dr. Graves for maintenance of her control and meds for migraine headaches. Review of Systems Review of Systems Constitutional: Denies fever or chills [] Eyes: Denies change in visual acuity, redness, or eye pain [] HENT: Denies nasal congestion or sore throat [] Respiratory: Denies cough or shortness of breath [] Cardiovascular: No additional information not addressed in HPI [] GI: Epigastric right upper and mid abdominal pain, nausea,. Denies vomiting, bloody stools or diarrhea [] : Denies dysuria or hematuria [] Musculoskeletal: Denies back pain or joint pain [] Integument: Denies rash or skin lesions [] Neurologic: Denies headache, focal weakness or sensory changes [] Endocrine: Denies polyuria or polydipsia [] All other systems were reviewed and found to be within normal limits, except as documented in this note. Family History Family History Noncontributory Current Medications Current Medications Current Medications Medications (Trade) Dose Ordered Sig/Otf Start Time Stop Time Status Last Admin Dose Admin Ceftriaxone Sodium 1 gm/ Sodium Chloride 50 ml @ 100 mls/hr 1X ONCE 04/22/19 19:30 04/22/19 19:59 DC 04/22/19 19:30 100 MLS/HR Ceftriaxone Sodium (Rocephin) 1 gm STK-MED ONCE 04/22/19 19:48 04/22/19 19:49 DC Famotidine (Pepcid Vial) 20 mg 1X ONCE 04/22/19 18:15 04/22/19 18:16 DC 04/22/19 18:47 20 MG Iohexol (Omnipaque 240 Mg/ml) 50 ml 1X ONCE 04/22/19 19:45 04/22/19 19:47 DC 04/22/19 20:37 50 ML Iohexol (Omnipaque 350 Mg/ml) 100 ml 1X ONCE 04/22/19 19:45 04/22/19 19:47 DC 04/22/19 20:37 100 ML Ketorolac Tromethamine (Toradol 30mg Vial) 30 mg 1X ONCE 04/22/19 18:30 04/22/19 18:33 DC 04/22/19 18:45 30 MG Lactated Ringer's 1,000 ml @ 1,000 mls/hr Q1H 04/22/19 18:06 04/22/19 19:05 DC 04/22/19 18:44 1,000 MLS/HR Magnesium Hydroxide (Milk Of Magnesia) 2,400 mg 1X ONCE 04/22/19 18:15 04/22/19 18:16 DC Ondansetron HCl (Zofran) 4 mg 1X ONCE 04/22/19 18:15 04/22/19 18:16 DC 04/22/19 18:46 4 MG Sodium Chloride 50 ml @ As Directed STK-MED ONCE 04/22/19 19:33 04/22/19 19:34 DC See nursing for home meds Allergies Allergies Allergies Coded Allergies Type Severity Reaction Last Updated Verified erythromycin base Adverse Reaction Severe Nausea and Vomiting 04/22/19 Yes Physical Exam Physical Exam Constitutional: Well developed, well nourished, inacute distress, non-toxic appearance. [] HENT: Normocephalic, atraumatic, bilateral external ears normal, oropharynx moist, no oral exudates, nose normal. [] Eyes: PERRLA, EOMI, conjunctiva normal, no discharge. [] Neck: Normal range of motion, no tenderness, supple, no stridor. [] Cardiovascular:Heart rate regular rhythm, no murmur [] Lungs & Thorax: Bilateral breath sounds equal at apex on auscultation [] Abdomen: Bowel sounds normal, soft, epigastric, right upper quadrant and mid abdomen tenderness, no masses, no pulsatile masses. [Mild rebound to epigastric and right upper quadrant. Patient declines pelvic and rectal exam this time. Skin: Warm, dry, no erythema, no rash. [] Back: No tenderness, no CVA tenderness. [] Extremities: No tenderness, no cyanosis, no clubbing, ROM intact, no edema. [No psoas sign. Neurologic: Alert and oriented X 3, normal motor function, normal sensory function, no focal deficits noted. [] Psychologic: Affect anxious, judgement normal, mood normal. [] Current Patient Data Vital Signs Vital Signs Date Time Temp Pulse Resp B/P (MAP) Pulse Ox O2 Delivery O2 Flow Rate FiO2 04/22/19 19:54 62 18 109/70 (83) 100 Room Air 04/22/19 18:07 98.4 Lab Results Laboratory Tests Test 04/22/19 18:15 04/22/19 18:24 04/22/19 18:40 Urine Collection Type Unknown Urine Color Yellow Urine Clarity Clear Urine pH 7.0 Urine Specific [place] 1.015 Urine Protein Neg (NEG-TRACE) Urine Glucose (UA) Neg mg/dL (NEG) Urine Ketones (Stick) Neg mg/dL (NEG) Urine Blood Neg (NEG) Urine Nitrite Neg (NEG) Urine Bilirubin Neg (NEG) Urine Urobilinogen Dipstick 0.2 mg/dL (0.2 mg/dL) Urine Leukocyte Esterase Small (NEG) Urine RBC 0 /HPF (0-2) Urine WBC 1-4 /HPF (0-4) Urine Squamous Epithelial Cells Occ /LPF Urine Bacteria Few /HPF (0-FEW) Urine Opiates Screen Neg (NEG) Urine Methadone Screen Neg (NEG) Urine Barbiturates Neg (NEG) Urine Phencyclidine Screen Neg (NEG) Urine Amphetamine/Methamphetamine Neg (NEG) Urine Benzodiazepines Screen Neg (NEG) Urine Cocaine Screen Neg (NEG) Urine Cannabinoids Screen Neg (NEG) Urine Ethyl Alcohol Neg (NEG) POC Urine HCG, Qualitative hcg negative (Negative) White Blood Count 5.8 x10^3/uL (4.0-11.0) Red Blood Count 4.11 x10^6/uL (3.50-5.40) Hemoglobin 12.9 g/dL (12.0-15.5) Hematocrit 38.4 % (36.0-47.0) Mean Corpuscular Volume 93 fL (79-100) Mean Corpuscular Hemoglobin 31 pg (25-35) Mean Corpuscular Hemoglobin Concent 34 g/dL (31-37) Red Cell Distribution Width 14.5 % (11.5-14.5) Platelet Count 243 x10^3/uL (140-400) Neutrophils (%) (Auto) 59 % (31-73) Lymphocytes (%) (Auto) 28 % (24-48) Monocytes (%) (Auto) 9 % (0-9) Eosinophils (%) (Auto) 2 % (0-3) Basophils (%) (Auto) 1 % (0-3) Neutrophils # (Auto) 3.4 x10^3uL (1.8-7.7) Lymphocytes # (Auto) 1.7 x10^3/uL (1.0-4.8) Monocytes # (Auto) 0.5 x10^3/uL (0.0-1.1) Eosinophils # (Auto) 0.1 x10^3/uL (0.0-0.7) Basophils # (Auto) 0.1 x10^3/uL (0.0-0.2) Prothrombin Time 9.5 SEC (9.4-11.4) Prothrombin Time INR 1.0 (0.9-1.1) PTT 26 SEC (23-33) Sodium Level 139 mmol/L (136-145) Potassium Level 3.9 mmol/L (3.5-5.1) Chloride Level 102 mmol/L (98-107) Carbon Dioxide Level 31 mmol/L (21-32) Anion Gap 6 (6-14) Blood Urea Nitrogen 10 mg/dL (7-20) Creatinine 0.7 mg/dL (0.6-1.0) Estimated GFR (Cockcroft-Gault) 101.1 Glucose Level 86 mg/dL (70-99) Calcium Level 9.1 mg/dL (8.5-10.1) Total Bilirubin 0.3 mg/dL (0.2-1.0) Direct Bilirubin 0.1 mg/dL (0.0-0.2) Aspartate Amino Transferase (AST) 16 U/L (15-37) Alanine Aminotransferase (ALT) 12 U/L (14-59) L Alkaline Phosphatase 72 U/L (46-116) Creatine Kinase 71 U/L (26-192) Troponin I Quantitative < 0.017 ng/mL (0-0.055) Total Protein 8.2 g/dL (6.4-8.2) Albumin 3.6 g/dL (3.4-5.0) Amylase Level 43 U/L (25-115) Lipase 109 U/L (73-393) EKG EKG [] Radiology/Procedures Radiology/Procedures My interpretation acute abdomen film shows no obvious cardiopulmonary findings. No free air in the diaphragm. Non-obstructive bowel gas pattern. Did have stool in colon.[] CT of abdomen and chest shows no findings of acute pulmonary cause of her pain and no findings of acute surgical pathology for pain. See formal report when available Course & Med Decision Making Course & Med Decision Making Pertinent Labs and Imaging studies reviewed. (See chart for details) Patient's pain had reduced significantly by time of her requested discharge. Patient to stay on a clear fluid diet only. No solids or milk products for the next 2 days. Follow-up primary care. Return if any concerns. Take Keflex 500 mg 3 times a day for urinary tract infection. Tylenol and ibuprofen for pain. Follow up urine cultures. Return if any concerns [] Final Impression Final Impression 1. Abdomen[] pain 2. Chest Pain- pleuritic 3. Urinary tract infection Dragon Disclaimer Dragon Disclaimer This electronic medical record was generated, in whole or in part, using a voice recognition dictation system. Discharge Summary Visit Information Final Diagnosis Problems Medical Problems: (1) Chest pain, pleuritic Status: Acute (2) Pain in the abdomen Status: Acute (3) Urinary tract bacterial infections Status: Acute Brief Hospital Course Allergies Allergies Coded Allergies Type Severity Reaction Last Updated Verified erythromycin base Adverse Reaction Severe Nausea and Vomiting 04/22/19 Yes Vital Signs Vital Signs Date Time Temp Pulse Resp B/P (MAP) Pulse Ox O2 Delivery O2 Flow Rate FiO2 04/22/19 19:54 62 18 109/70 (83) 100 Room Air 04/22/19 18:07 98.4 Lab Results Laboratory Tests Test 04/22/19 18:15 04/22/19 18:24 04/22/19 18:40 Urine Collection Type Unknown Urine Color Yellow Urine Clarity Clear Urine pH 7.0 Urine Specific [place] 1.015 Urine Protein Neg (NEG-TRACE) Urine Glucose (UA) Neg mg/dL (NEG) Urine Ketones (Stick) Neg mg/dL (NEG) Urine Blood Neg (NEG) Urine Nitrite Neg (NEG) Urine Bilirubin Neg (NEG) Urine Urobilinogen Dipstick 0.2 mg/dL (0.2 mg/dL) Urine Leukocyte Esterase Small (NEG) Urine RBC 0 /HPF (0-2) Urine WBC 1-4 /HPF (0-4) Urine Squamous Epithelial Cells Occ /LPF Urine Bacteria Few /HPF (0-FEW) Urine Opiates Screen Neg (NEG) Urine Methadone Screen Neg (NEG) Urine Barbiturates Neg (NEG) Urine Phencyclidine Screen Neg (NEG) Urine Amphetamine/Methamphetamine Neg (NEG) Urine Benzodiazepines Screen Neg (NEG) Urine Cocaine Screen Neg (NEG) Urine Cannabinoids Screen Neg (NEG) Urine Ethyl Alcohol Neg (NEG) Bedside Urine HCG, Qualitative hcg negative (Negative) White Blood Count 5.8 x10^3/uL (4.0-11.0) Red Blood Count 4.11 x10^6/uL (3.50-5.40) Hemoglobin 12.9 g/dL (12.0-15.5) Hematocrit 38.4 % (36.0-47.0) Mean Corpuscular Volume 93 fL (79-100) Mean Corpuscular Hemoglobin 31 pg (25-35) Mean Corpuscular Hemoglobin Concent 34 g/dL (31-37) Red Cell Distribution Width 14.5 % (11.5-14.5) Platelet Count 243 x10^3/uL (140-400) Neutrophils (%) (Auto) 59 % (31-73) Lymphocytes (%) (Auto) 28 % (24-48) Monocytes (%) (Auto) 9 % (0-9) Eosinophils (%) (Auto) 2 % (0-3) Basophils (%) (Auto) 1 % (0-3) Neutrophils # (Auto) 3.4 x10^3uL (1.8-7.7) Lymphocytes # (Auto) 1.7 x10^3/uL (1.0-4.8) Monocytes # (Auto) 0.5 x10^3/uL (0.0-1.1) Eosinophils # (Auto) 0.1 x10^3/uL (0.0-0.7) Basophils # (Auto) 0.1 x10^3/uL (0.0-0.2) Prothrombin Time 9.5 SEC (9.4-11.4) Prothromb Time International Ratio 1.0 (0.9-1.1) Activated Partial Thromboplast Time 26 SEC (23-33) Sodium Level 139 mmol/L (136-145) Potassium Level 3.9 mmol/L (3.5-5.1) Chloride Level 102 mmol/L (98-107) Carbon Dioxide Level 31 mmol/L (21-32) Anion Gap 6 (6-14) Blood Urea Nitrogen 10 mg/dL (7-20) Creatinine 0.7 mg/dL (0.6-1.0) Estimated GFR (Cockcroft-Gault) 101.1 Glucose Level 86 mg/dL (70-99) Calcium Level 9.1 mg/dL (8.5-10.1) Total Bilirubin 0.3 mg/dL (0.2-1.0) Direct Bilirubin 0.1 mg/dL (0.0-0.2) Aspartate Amino Transf (AST/SGOT) 16 U/L (15-37) Alanine Aminotransferase (ALT/SGPT) 12 U/L (14-59) Alkaline Phosphatase 72 U/L (46-116) Creatine Kinase 71 U/L (26-192) Troponin I Quantitative < 0.017 ng/mL (0-0.055) Total Protein 8.2 g/dL (6.4-8.2) Albumin 3.6 g/dL (3.4-5.0) Amylase Level 43 U/L (25-115) Lipase 109 U/L (73-393) Brief Hospital Course Ms. Jacobo is a 24 old female who presented with right upper and epigastric pain. Discharge Information Condition at Discharge: Improved, Stable Disposition/Orders: D/C to Home Dischare Medications Current Medications Lactated Ringer's 1,000 ml @ 1,000 mls/hr Q1H IV Last administered on 04/22/19at 18:44; Admin Dose 1,000 MLS/HR; Start 04/22/19 at 18:06; Stop 04/22/19 at 19:05; Status DC Ondansetron HCl (Zofran) 4 mg 1X ONCE IV Last administered on 04/22/19at 18:46; Admin Dose 4 MG; Start 04/22/19 at 18:15; Stop 04/22/19 at 18:16; Status DC Famotidine (Pepcid Vial) 20 mg 1X ONCE IVP Last administered on 04/22/19at 18:47; Admin Dose 20 MG; Start 04/22/19 at 18:15; Stop 04/22/19 at 18:16; Status DC Magnesium Hydroxide (Milk Of Magnesia) 2,400 mg 1X ONCE PO ; Start 04/22/19 at 18:15; Stop 04/22/19 at 18:16; Status DC Ketorolac Tromethamine (Toradol 30mg Vial) 30 mg 1X ONCE IV Last administered on 04/22/19at 18:45; Admin Dose 30 MG; Start 04/22/19 at 18:30; Stop 04/22/19 at 18:33; Status DC Ceftriaxone Sodium 1 gm/ Sodium Chloride 50 ml @ 100 mls/hr 1X ONCE IV Last administered on 04/22/19at 19:30; Admin Dose 100 MLS/HR; Start 04/22/19 at 19:30; Stop 04/22/19 at 19:59; Status DC Ceftriaxone Sodium (Rocephin) 1 gm STK-MED ONCE .ROUTE ; Start 04/22/19 at 19:33; Stop 04/22/19 at 19:34; Status DC Sodium Chloride 50 ml @ As Directed STK-MED ONCE .ROUTE ; Start 04/22/19 at 19:33; Stop 04/22/19 at 19:34; Status DC Iohexol (Omnipaque 240 Mg/ml) 50 ml 1X ONCE PO Last administered on 04/22/19at 20:37; Admin Dose 50 ML; Start 04/22/19 at 19:45; Stop 04/22/19 at 19:47; Status DC Iohexol (Omnipaque 350 Mg/ml) 100 ml 1X ONCE IV Last administered on 04/22/19at 20:37; Admin Dose 100 ML; Start 04/22/19 at 19:45; Stop 04/22/19 at 19:47; Status DC Ceftriaxone Sodium (Rocephin) 1 gm STK-MED ONCE .ROUTE ; Start 04/22/19 at 19:48; Stop 04/22/19 at 19:49; Status DC Active Scripts Active Macrobid 100 Mg Capsule (Nitrofurantoin Monohyd/M-Cryst) 100 Mg Capsule 100 Mg PO BID Hydrocodone-Ibuprofen 7.5-200 (Hydrocodone/Ibuprofen) 1 Each Tablet 1 Tab PO PRN Q6HRS PRN Keflex (Cephalexin) 500 Mg Capsule 500 Mg PO TID 7 Days Polytrim Eye Drops (Polymyxin B Sulf/Trimethoprim) 10 Ml Drops 1 Drop EACHEYE Q6HRS PRN Hydrocodone-Ibuprofen 7.5-200 (Hydrocodone/Ibuprofen) 1 Each Tablet 1 Tab PO PRN Q6HRS PRN Ibuprofen 800 Mg Tablet 1 Tab PO TID Naprosyn (Naproxen) 500 Mg Tablet 1 Tab PO BID Denilson Disclaimer This chart was dictated in whole or in part using Voice Recognition software in a busy, high-work load, and often noisy Emergency Department environment. It may contain unintended and wholly unrecognized errors or omissions. YOHANA AGUAYO MD April 22, 2019 18:29
[2019-04-22] MEDS ORDERED: KETOROLAC 30 MG/ML VIAL. IV ONE (18:30)
[2019-04-22 18:44] LABS: BARBITURATES NEG (NEG); BENZODIAZEPINES NEG (NEG); CANNABINOIDS NEG (NEG); COCAINE NEG (NEG); METHADONE NEG (NEG); OPIATES NEG (NEG); PHENCYCLIDINE NEG (NEG)
[2019-04-22 18:45] LABS: AMPHETAMINE/METHAMPHETAMINE NEG (NEG)
[2019-04-22 18:49] LABS: BACTERIA,URINE FEW /HPF (0-FEW); BILIRUBIN,URINE NEG (NEG); CLARITY,URINE CLEAR; COLOR,URINE YELLOW; GLUCOSE,URINE NEG (NEG); NITRITE,URINE NEG (NEG); RBC,URINE 0 /HPF (0-2); SQUAMOUS EPITHELIAL CELL,UR OCC /LPF; UROBILINOGEN,URINE 0.2 mg/dL (0.2 mg/dL)
[2019-04-22 18:53] LABS: BASO # 0.1 x10^3/uL (0.0-0.2); BASO % 1 % (0-3); EOS # 0.1 x10^3/uL (0.0-0.7); EOS % 2 % (0-3); HEMATOCRIT 38.4 % (36.0-47.0); HEMOGLOBIN 12.9 g/dL (12.0-15.5); LYMPH # 1.7 x10^3/uL (1.0-4.8); LYMPH % 28 % (24-48); MEAN CORPUSCULAR HEMOGLOBIN 31 pg (25-35); MEAN CORPUSCULAR HGB CONC 34 g/dL (31-37); MEAN CORPUSCULAR VOLUME 93 fL (79-100); MONO # 0.5 x10^3/uL (0.0-1.1); MONO % 9 % (0-9); NEUT # 3.4 x10^3uL (1.8-7.7); NEUT % 59 % (31-73); PLATELET COUNT 243 x10^3/uL (140-400); RED BLOOD COUNT 4.11 x10^6/uL (3.50-5.40); RED CELL DISTRIBUTION WIDTH 14.5 % (11.5-14.5); WHITE BLOOD COUNT 5.8 x10^3/uL (4.0-11.0)
[2019-04-22 19:08] LABS: ALBUMIN 3.6 g/dL (3.4-5.0); CALCIUM 9.1 mg/dL (8.5-10.1); CREATININE 0.7 mg/dL (0.6-1.0); DIRECT BILIRUBIN 0.1 mg/dL (0.0-0.2); GFR 101.1; POTASSIUM 3.9 mmol/L (3.5-5.1); TOTAL BILIRUBIN 0.3 mg/dL (0.2-1.0); TOTAL PROTEIN 8.2 g/dL (6.4-8.2)
[2019-04-22] MEDS ORDERED: cefTRIAXone SODIUM 1 GM VIAL ONE ×2 (19:33→19:48)
[2019-04-22] MEDS ORDERED: IV NORMAL SALINE 50ML 50 ML ONE (19:33)
[2019-04-22] MEDS ORDERED: IOHEXOL 350 MG/ML 100 ML VIAL. IV ONE (19:45)
[2019-04-22] MEDS ORDERED: IOHEXOL 240 MG/ML 50ML VIAL. PO ONE (19:45)
[2019-04-22 19:54] VITALS: BP 109/70
--- NOTE | 2019-04-22 21:26 | RAD ---
CTA scan of the Chest with Contrast (Pulmonary Embolism protocol) 04/22/2019 Clinical History: Right-sided chest pain. Technique: After the intravenous administration of 90 cc of Omnipaque 300, contiguous, 0.625 mm axial sections were obtained through the chest. 2.mm axial and 3D MIP coronal and sagittal reconstructed images were obtained. One or more of the following individualized dose reduction techniques were utilized for this study: 1. Automated exposure control. 2. Adjustment of the mA and/or kV according to patient size. 3. Use of iterative reconstruction technique. Findings: No filling defect is seen within the major branches of either pulmonary artery. There is no CT evidence of pulmonary embolism. The heart and thoracic aorta are within normal limits. Minimal dependent subsegmental atelectasis is seen involving both lungs. No pulmonary infiltrate, pleural effusion or pneumothorax is seen. Impression: There is no CT evidence of pulmonary embolism. CT scan of the abdomen and pelvis with contrast 04/22/2019 CLINICAL HISTORY: Right upper quadrant abdominal pain. TECHNIQUE: After the oral and intravenous administration of contrast, contiguous, 3 mm axial sections were obtained through abdomen and pelvis. 90 cc of Omnipaque 300 were administered intravenously during this examination. One or more of the following individualized dose reduction techniques were utilized for this study: 1. Automated exposure control. 2. Adjustment of the mA and/or kV according to patient size. 3. Use of iterative reconstruction technique. FINDINGS: Images through the lung bases demonstrate minimal dependent subsegmental atelectasis bilaterally. The liver, spleen, pancreas, adrenal glands and kidneys are within normal limits. The abdominal aorta tapers normally. The gallbladder is slightly contracted. No free fluid or free air is within the abdomen. There is no evidence of bowel obstruction. The appendix is well-visualized and is within normal limits. Air and stool is seen throughout the colon. There is no evidence of bowel obstruction. Images through the pelvis demonstrate the urinary bladder distended with urine. No adnexal mass is seen. Calcifications are seen within the pelvis consistent with phleboliths. No free fluid is noted. The osseous structures are grossly intact. IMPRESSION: No acute abnormality is seen. Electronically signed by: Jose A Schultz MD (04/22/2019 9:23 PM) [facility]
[2019-04-22] MEDS ORDERED: HYDR-1179 PO (21:51)
[2019-04-22] MEDS ORDERED: CEPH-264 PO (21:51)
[2019-04-22] MEDS ORDERED: NITR100C62 PO (22:34)
--- NOTE | 2019-04-23 00:56 | RAD ---
Two-view abdomen radiographs 04/22/2019 CLINICAL HISTORY: Right upper quadrant abdominal pain. Supine and erect AP digital radiographs abdomen/pelvis were obtained. The lung bases are clear. The abdominal bowel gas pattern is nonobstructive. A moderate amount stool is seen throughout the colon. No radiopaque calculus is seen. Calcifications are seen within the pelvis consistent with phleboliths. There is no evidence of free air. The osseous structures are grossly intact. IMPRESSION: Nonobstructive bowel gas pattern. Electronically signed by: Jose A Schultz MD (04/23/2019 12:52 AM) [facility]
--- NOTE | 2019-04-23 01:10 | RAD ---
PA and lateral chest radiographs 04/22/2019 Clinical History: Right-sided chest pain. PA and lateral digital radiographs of the chest were obtained. No previous studies are available for comparison. The cardiac and mediastinal silhouettes are within normal limits in size and configuration. No pulmonary infiltrate is seen. No pleural effusion or pneumothorax is noted. The osseous structures are grossly intact. Impression: No acute abnormality is seen. Electronically signed by: Jose A Schultz MD (04/23/2019 1:07 AM) [facility]
== END 2019-04-22 22:30 | disposition home or self-care (01) ==
LOC: ER 17:57
DX: N39.0 Urinary tract infection, site not specified (principal); R07.81 Pleurodynia; B96.89 Other specified bacterial agents as the cause of diseases classified elsewhere; Z87.440 Personal history of urinary (tract) infections; Z88.1 Allergy status to other antibiotic agents
CPT/HCPCS: 36415; 71046; 71275; 74021; 74177; 80048; 80076; 80307; 81001; 81025; 82150; 82550; 83690; 84484; 85025; 85610; 85730; 87040; 87086; 96365; 96375; 99285; J0696; J1885; J2405; J3490; J7120; Q9966; Q9967

== ENCOUNTER 2019-05-20 21:20 | Emergency (ER) | payer OTHER ==
[~2019-05-20] VITALS: Ht 167.6 cm; Wt 65.8 kg
[~2019-05-20 21:20] MED LIST changes: +CEPH-264 PO; +NITR100C62 PO
[2019-05-20 22:06] LABS: CLARITY,URINE HAZY; COLOR,URINE YELLOW
[2019-05-20 22:07] LABS: BACTERIA,URINE MOD /HPF (0-FEW); BILIRUBIN,URINE NEG (NEG); GLUCOSE,URINE NEG (NEG); NITRITE,URINE NEG (NEG); RBC,URINE OCC /HPF (0-2); SPERM,URINE PRESENT /HPF; SQUAMOUS EPITHELIAL CELL,UR MOD /LPF; UROBILINOGEN,URINE 0.2 mg/dL (0.2 mg/dL)
[2019-05-20 22:40] VITALS: BP 115/66
[2019-05-20] MEDS ORDERED: METR500T PO (22:59)
--- NOTE | 2019-05-20 22:59 | PHYS DOC ---
Past History Past Medical History: No Pertinent History Past Surgical History: No Surgical History Smoking: Non-smoker Alcohol Use: None Drug Use: None Adult General Chief Complaint Chief Complaint: VAGINAL BLEEDING HPI HPI 24-year-old female presents with report of sharp pelvic pain which started today at approximately 1500. Patient reports she also noted having some bleeding at 1800. Patient reports associated cramping and nausea. Patient reports having a 5 day. Starting on 05/04/2019. Reports this is abnormal as she normally starts around the 25th of every month. Patient denies any vaginal discharge. Denies fever or chills. Denies dysuria or increased urinary frequency. Patient denies known sick contacts. Unsure of . Review of Systems Review of Systems Constitutional: Denies fever or chills Eyes: Denies redness or eye pain HENT: Denies nasal congestion or sore throat Respiratory: Denies cough or shortness of breath Cardiovascular: Denies chest pain or palpitations GI: Reports pelvic pain; denies nausea or vomiting : Denies dysuria or hematuria Musculoskeletal: Denies back pain or joint pain Integument: Denies rash or skin lesions Neurologic: Denies headache, focal weakness or sensory changes Complete systems were reviewed and found to be within normal limits, except as d ocumented in this note. Allergies Allergies Allergies Coded Allergies Type Severity Reaction Last Updated Verified erythromycin base Adverse Reaction Severe Nausea and Vomiting 04/22/19 Yes Physical Exam Physical Exam Constitutional: Well developed, well nourished, no acute distress, non-toxic appearance HENT: Normocephalic, atraumatic, oropharynx moist Eyes: Conjunctiva normal, no discharge Neck: Normal range of motion, no tenderness, supple Cardiovascular: Heart rate normal, regular rhythm Lungs & Thorax: Bilateral breath sounds clear to auscultation, no wheezing Abdomen: Soft, no tenderness Pelvic: External genetalia normal,. 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 Skin: Warm, dry, no erythema, no rash Back: No tenderness, no CVA tenderness Extremities: No tenderness, ROM intact, no edema Neurologic: Alert and oriented X 3, normal motor function, normal sensory func tion, no focal deficits noted Psychologic: Affect normal, judgement normal, mood normal Current Patient Data Vital Signs Vital Signs Date Time Temp Pulse Resp B/P (MAP) Pulse Ox O2 Delivery O2 Flow Rate FiO2 05/20/19 21:40 98.9 82 98 Room Air Lab Results Laboratory Tests Test 05/20/19 21:37 Urine Collection Type Unknown Urine Color Yellow Urine Clarity Hazy Urine pH 7.5 Urine Specific [place] 1.020 Urine Protein Neg (NEG-TRACE) Urine Glucose (UA) Neg mg/dL (NEG) Urine Ketones (Stick) Neg mg/dL (NEG) Urine Blood Large (NEG) Urine Nitrite Neg (NEG) Urine Bilirubin Neg (NEG) Urine Urobilinogen Dipstick 0.2 mg/dL (0.2 mg/dL) Urine Leukocyte Esterase Mod (NEG) Urine RBC Occ /HPF (0-2) Urine WBC 11-20 /HPF (0-4) Urine Squamous Epithelial Cells Mod /LPF Urine Bacteria Mod /HPF (0-FEW) Urine Mucus Slight /LPF Urine Sperm Present /HPF Microbiology 05/20/19 Wet Prep - Final, Complete EKG EKG [] Radiology/Procedures Radiology/Procedures [] Course & Med Decision Making Course & Med Decision Making Pertinent Lab studies reviewed. (See chart for details) Patient presents with pelvic pain and history of a early vaginal bleeding. Patient denies . Urine negative. UA with signs of infection versus contamination. Patient denies any urinary symptoms. We will await urine culture. Pelvic exam performed without significant signs of active bleeding. Chlamydia/gonorrhea cultures pending. Patient declined empiric antibiotic therapy. Wet mount positive for BV. Flagyl provided. Patient stable for discharge with outpatient follow-up with PCP/[facility]. Discussed findings and plan with patient, who acknowledges understanding and agreement. Dragon Disclaimer Dragon Disclaimer This electronic medical record was generated, in whole or in part, using a voice recognition dictation system. Departure Departure: Impression: Primary Impression: Pelvic pain Additional Impression: Bacterial vaginitis Disposition: HOME, SELF-CARE Condition: STABLE Referrals: ROLO FARRELL MD (PCP) Patient Instructions: Bacterial Vaginosis, [id number], Pelvic Pain, Female, [id number] Scripts Metronidazole (FLAGYL) 500 Mg Tablet 1 TAB PO BID for Vaginitis, #14 TAB Prov: BÁRBARA SHARMA DO 05/20/19 Problem Qualifiers BÁRBARA SHARMA DO May 20, 2019 22:59
[2019-05-20] MEDS ORDERED: metroNIDAZOLE 500 MG TABLET PO ONE (23:00)
== END 2019-05-20 22:40 | disposition home or self-care (01) ==
LOC: ER 21:20
DX: N76.0 Acute vaginitis (principal); B96.89 Other specified bacterial agents as the cause of diseases classified elsewhere; Z88.1 Allergy status to other antibiotic agents
CPT/HCPCS: 81001; 81025; 87086; 87491; 87591; 99284; Q0111